=== PATIENT | male | born 1970 | race African-American/Black ===

== ENCOUNTER 2019-04-20 11:14 | Emergency (ER) | payer MEDICARE ==
[~2019-04-20] VITALS: Ht 180.3 cm; Wt 85.0 kg
[2019-04-20] MEDS ORDERED: IBUPROFEN 600MG TABLET PO ONE (14:40)
[2019-04-20] MEDS ORDERED: IBUPROFEN 600MG TABLET ONE (15:02)
[2019-04-20 16:09] VITALS: BP 174/98
== END 2019-04-20 16:11 | disposition home or self-care (01) ==
LOC: ER 12:12
DX: S69.82XA Other specified injuries of left wrist, hand and finger(s), initial encounter (principal); W22.8XXA Striking against or struck by other objects, initial encounter; Y93.89 Activity, other specified; Y92.89 Other specified places as the place of occurrence of the external cause; Y99.8 Other external cause status; Z86.73 Personal history of transient ischemic attack (TIA), and cerebral infarction without residual deficits
CPT/HCPCS: 73140; 99283

== ENCOUNTER 2019-05-03 01:19 | Inpatient (IN) | payer MEDICARE ==
[~2019-05-03] VITALS: Ht 180.3 cm; Wt 96.6 kg
[2019-05-03 05:02] LABS: HEMATOCRIT. 35.5 % (42.0-52.0); HEMOGLOBIN. 11.9 g/dL (14.0-18.0); MEAN CORPUSCULAR HEMOGLOBIN 26.7 pg (28.0-32.0); MEAN CORPUSCULAR VOLUME 79.9 fL (80.0-94.0); MEAN PLATELET VOLUME 8.8 fl (7.4-10.4); PLATELET 144 x1000/uL (130-400); RED BLOOD CELL COUNT 4.44 mill/uL (4.7-6.1); RED CELL DISTRIBUTION WIDTH 15.2 % (11.6-14.6)
[2019-05-03 05:10] LABS: PROTHROMBIN TIME 10.5 sec (9.6-11.0)
[2019-05-03 06:31] LABS: ATYPICAL LYMPHOCYTES 2; PLATELET ESTIMATE NORMAL
[2019-05-03] MEDS ORDERED: FUROSEMIDE 40MG/4ML VIAL IVP SCH (09:30)
[2019-05-03] MEDS ORDERED: ACETAMINOPHEN 325MG TABLET PO ONE (09:30)
[2019-05-03 12:00] VITALS: BP 158/82
[2019-05-03] MEDS ORDERED: NITROGLYCERIN 0.4MG TABLET SL SL PRN (13:00)
[2019-05-03] MEDS ORDERED: CLONIDINE 0.1MG TABLET PO PRN (13:00)
[2019-05-03] MEDS ORDERED: GUAIFENESIN 200MG/10ML SUGAR FREE UDC PO PRN (13:00)
[2019-05-03] MEDS ORDERED: ONDANSETRON HCL 4MG/2ML INJ IV PRN (13:00)
[2019-05-03] MEDS ORDERED: DOCUSATE SODIUM 100MG CAPSULE PO PRN (13:00)
[2019-05-03] MEDS ORDERED: ZOLPIDEM TARTRATE 5MG TABLET PO PRN (13:00)
[2019-05-03] MEDS ORDERED: ACETAMINOPHEN 325MG TABLET PO PRN (13:00)
[2019-05-03] MEDS ORDERED: MAGNESIUM/ALUMINUM HYDROXIDE/SIMETHICONE 30ML UDC PO PRN (13:00)
[2019-05-03] MEDS ORDERED: IPRATROPIUM/ALBUTEROL 0.5-3(2.5)MG/3ML NEB HHN PRN (13:00)
[2019-05-03] MEDS ORDERED: TRAMADOL 50MG TABLET PO PRN (13:00)
[2019-05-03 13:17] LABS: T4 FREE 1.38 ng/dL (0.76-1.46)
[2019-05-03 13:37] LABS: FOLIC ACID (FOLATE) SERUM 16.2 ng/mL (>5.38)
[2019-05-03 14:00] VITALS: BP 158/82
[2019-05-03] MEDS: FAMOTIDINE 20MG TABLET PO SCH (15:41)
[2019-05-03 16:00] VITALS: BP 166/80
[2019-05-03 16:23] LABS: CREATINE KINASE MB FRACTION 1.4 ng/mL (0.5-3.6)
[2019-05-03] MEDS: ENOXAPARIN 40MG/0.4ML SYR SUBCUT SCH (16:55)
[2019-05-03] MEDS: FUROSEMIDE 40MG/4ML VIAL IVP SCH (17:09)
[2019-05-03] MEDS ORDERED: AMLO10TA80 PO (19:29)
[2019-05-03] MEDS ORDERED: OLME20TA13 PO (19:29)
[2019-05-03] MEDS ORDERED: CARV25TA47 PO (19:29)
[2019-05-03] MEDS ORDERED: HYDR-4135 PO (19:29)
[2019-05-03] MEDS ORDERED: ASPI-1393 PO (19:29)
[2019-05-03] MEDS ORDERED: FURO40TA5 PO (19:29)
[2019-05-03] MEDS ORDERED: MINO10TA PO (19:29)
[2019-05-03 20:00] VITALS: BP 157/82
[2019-05-03] MEDS ORDERED: MINOXIDIL 2.5MG TABLET PO SCH (21:00)
[2019-05-03] MEDS: MINOXIDIL 10MG TABLET PO SCH (22:02)
[2019-05-03] MEDS: LISINOPRIL 10MG TABLET PO SCH (22:02)
[2019-05-04] VITALS: BP 134/63
[2019-05-04 00:45] LABS: PHOSPHORUS 3.7 mg/dL (2.5-4.9)
[2019-05-04 04:00] VITALS: BP 134/69
[2019-05-04 06:13] LABS: CHLORIDE 108 mEq/L (98-107)
[2019-05-04] MEDS: FUROSEMIDE 40MG/4ML VIAL IVP SCH (06:22)
[2019-05-04 08:00] VITALS: BP 128/66
[2019-05-04] MEDS: FAMOTIDINE 20MG TABLET PO SCH (08:28)
[2019-05-04] MEDS: MINOXIDIL 10MG TABLET PO SCH (08:29)
[2019-05-04] MEDS: LISINOPRIL 10MG TABLET PO SCH (08:29)
[2019-05-04] MEDS ORDERED: CLOPIDOGREL 75MG TABLET PO SCH (09:00)
[2019-05-04 10:07] LABS: PHOSPHORUS 3.7 mg/dL (2.5-4.9)
[2019-05-04] MEDS ORDERED: POTASSIUM CHLORIDE 20MEQ TABLET SR PO NR ×2 (10:30→18:00)
[2019-05-04 12:00] VITALS: BP 133/72
[2019-05-04] MEDS: ENOXAPARIN 40MG/0.4ML SYR SUBCUT SCH (16:12)
[2019-05-04 20:00] VITALS: BP 125/65
[2019-05-04] MEDS: CARVEDILOL 12.5MG TABLET PO SCH (21:48)
[2019-05-04] MEDS: MINOXIDIL 2.5MG TABLET PO SCH (21:49)
[2019-05-04] MEDS: LISINOPRIL 20MG TABLET PO SCH (21:50)
[2019-05-05] VITALS: BP 117/54
[2019-05-05 04:00] VITALS: BP 135/69
[2019-05-05 08:09] VITALS: BP 157/82
[2019-05-05] MEDS: AMLODIPINE 10MG TABLET PO SCH (08:28)
[2019-05-05] MEDS: FAMOTIDINE 20MG TABLET PO SCH (08:28)
[2019-05-05] MEDS: ASPIRIN 81MG EC TABLET PO SCH (08:28)
[2019-05-05] MEDS: MINOXIDIL 2.5MG TABLET PO SCH ×2 (08:28→22:27)
[2019-05-05] MEDS: LISINOPRIL 20MG TABLET PO SCH ×2 (08:29→22:28)
[2019-05-05] MEDS: CARVEDILOL 12.5MG TABLET PO SCH ×2 (08:29→22:27)
[2019-05-05] MEDS ORDERED: FUROSEMIDE 40MG/4ML VIAL IVP SCH (09:00)
[2019-05-05 12:30] VITALS: BP 145/71
[2019-05-05] MEDS: ENOXAPARIN 40MG/0.4ML SYR SUBCUT SCH (14:26)
[2019-05-05] MEDS ORDERED: POTASSIUM CHLORIDE 20MEQ TABLET SR PO NR ×2 (14:45→18:30)
[2019-05-05 16:31] VITALS: BP 121/66
[2019-05-05 20:00] VITALS: BP 120/60
[2019-05-06] VITALS: BP 129/70
[2019-05-06 04:00] VITALS: BP 136/72
[2019-05-06 07:59] VITALS: BP 139/72
[2019-05-06] MEDS ORDERED: POTASSIUM CHLORIDE 20MEQ TABLET SR PO SCH (09:00)
[2019-05-06 12:06] VITALS: BP 139/72
[2019-05-06 12:10] VITALS: BP 132/73
[2019-05-06] MEDS: ASPIRIN 81MG EC TABLET PO SCH (13:21)
[2019-05-06] MEDS: MINOXIDIL 2.5MG TABLET PO SCH (13:22)
[2019-05-06] MEDS: LISINOPRIL 20MG TABLET PO SCH (13:23)
[2019-05-06] MEDS: AMLODIPINE 10MG TABLET PO SCH (13:24)
== END 2019-05-06 13:50 | disposition home or self-care (01) | DRG 291 ==
LOC: ER 01:19 → 6WST 10:00 → ENRESERV 11:43 → SUPCPDRO 12:55
PROVIDERS: ADMIT Internal Medicine; ATTEND Internal Medicine
DX: I13.0 Hypertensive heart and chronic kidney disease with heart failure and stage 1 through stage 4 chronic kidney disease, or unspecified chronic kidney disease (principal); I50.33 Acute on chronic diastolic (congestive) heart failure; N17.0 Acute kidney failure with tubular necrosis; N18.3 Chronic kidney disease, stage 3 (moderate); D63.8 Anemia in other chronic diseases classified elsewhere; F12.90 Cannabis use, unspecified, uncomplicated; Z86.73 Personal history of transient ischemic attack (TIA), and cerebral infarction without residual deficits; Z79.02 Long term (current) use of antithrombotics/antiplatelets; Z79.899 Other long term (current) drug therapy
CPT/HCPCS: 36415; 70551; 71045; 76770; 80048; 80061; 82550; 82553; 82607; 82746; 83036; 83540; 83550; 83735; 83880; 84100; 84439; 84443; 84484; 93306; 93970; 96374; 99285; J1650; J1940